=== PATIENT | female | born 1990 | race Caucasian/White ===

== ENCOUNTER 2025-02-03 08:11 | Emergency (ER) | payer MEDICAID ==
[2025-02-03] MEDS ORDERED: Sodium Chloride 0.9% 10 ML Syringe FLUSH PRN (08:23)
[2025-02-03] MEDS ORDERED: Naloxone 2 MG/2 ML Syringe IVPUSH PRN (08:32)
[2025-02-03 08:36] LABS: BASOPHILS PERCENT AUTO 0.1 % (0.0-1.0); EOSINOPHILS PERCENT AUTO 0.5 % (1.0-3.0); HEMATOCRIT 40.3 % (37.0-47.0); HEMOGLOBIN 13.1 g/dL (12.0-16.0); LYMPHOCYTES PERCENT AUTO 9.3 % (20.5-50.1); MEAN CORPUSCULAR HEMOGLOBIN 27.9 pg (27.0-34.0); MEAN CORPUSCULAR HGB CONC 32.5 g/dL (33.0-35.0); MEAN CORPUSCULAR VOLUME 85.7 fL (80-100); MONOCYTES PERCENT AUTO 4.5 % (2-8); NEUTROPHILS PERCENT AUTO 85.6 % (42.2-75.2); PLATELET COUNT,PLT 324 10^3/uL (150-450); WHITE BLOOD CELL COUNT,WBC 13.7 10^3/uL (5.0-10.0)
[2025-02-03] MEDS: fentaNYL 100 MCG/2 ML SDV IVPUSH ONE (08:45)
[2025-02-03] MEDS: Ondansetron 4 MG/2 ML SDV IVPUSH ONE (08:47)
[2025-02-03 08:51] LABS: INR 0.9 (0.9-1.2); PROTHROMBIN TIME 9.3 SEC (9.0-12.0)
[2025-02-03 08:59] LABS: ALANINE AMINOTRANSFERASE,ALT 19 U/L (14-59); ALBUMIN 3.1 g/dL (3.4-5.0); ALKALINE PHOSPHATASE 71 U/L (46-116); ASPARTATE AMNIOTRANSFERASE,AST 13 U/L (15-37); BILIRUBIN TOTAL 0.3 mg/dL (0.2-1.0); BLOOD UREA NITROGEN,BUN 12 mg/dL (7-18); BUN/CREATININE RATIO 13.2 (No establ ref range); C-REACTIVE PROTEIN 3.24 ng/dL (<=0.50); CALCIUM 8.9 mg/dL (8.5-10.1); CARBON DIOXIDE,CO2 23 mmol/L (21-32); CHLORIDE,CL 102 mmol/L (98-107); CREATININE 0.91 mg/dL (0.55-1.02); EST CRCL DRUG DOSING (CG) 66.97 mL/min; GLUCOSE RANDOM 105 mg/dL (70-99); LIPASE 33 U/L (16-77); MAGNESIUM 1.6 mg/dL (1.8-2.4); PROTEIN TOTAL,TP 7.3 g/dL (6.4-8.2); SODIUM,NA 136 mmol/L (136-145)
[2025-02-03 09:02] LABS: A/G RATIO 0.74; ESTIMATED GFR 86 mL/min (>=60)
[2025-02-03] MEDS: Iopamidol 755 Mg/ML 100 ML Bottle IVPUSH ONE (09:03)
[2025-02-03] MEDS: Lactated Ringers 1,000 ML IV SCH (09:43)
[2025-02-03] MEDS: Magnesium Sulfate 2 GM/50 mL 2 GM in Premix Bag 1 BAG IV ONE (09:47)
== END 2025-02-03 10:45 | disposition home or self-care (01) ==
LOC: DL.ED 08:11
DX: I26.99 Other pulmonary embolism without acute cor pulmonale (principal)
CPT/HCPCS: 36415; 71046; 71275; 80053; 81240; 81241; 83690; 83735; 84484; 84703; 85025; 85301; 85303; 85306; 85379; 85610; 86140; 93005; 93010; 96365; 96375; 99284; 99285-25; J2405; J3010; J3475; J7120; Q9967